=== PATIENT | female | born 1945 | race Caucasian/White ===

== ENCOUNTER 2017-06-12 10:38 | Outpatient (CLI) | payer MEDICARE, MEDICAID ==
[~2017-06-12 10:38] MED LIST: ACET650T10 PO; ALBUT2 CONTNEB; ALEN70TA3 PO; AZEL137S7 BNOSTRILS; BENZ1LOZ58 MM; BUDE0.5A4 IH; CARI350T PO; CLON0.1T PO; CLOP75TA2 PO; CODE118S2 PO; DEXT1DRO3 OP; DIPH25TA25 PO; DOCU100T2 PO; FAMO20TA80 PO; FLUO-120 PO; FOLI0.8T23 PO; GUAI5SYR PO; HYDR-548 PO; IPRA0.2S9 IH; LACT1CAP39 PO; LORA1TAB82 PO; MAGN2400 PO; METO25TA20 PO; MONT10TA22 PO; MYLANTA PO; ONDA4SOL2 PO; PANT40TA2 PO; POLY17PO4 PO; PRED20TA PO; SUCR1ORA2 PO; THYR120T2 PO; TRAM50TA2 PO
== END 2017-06-12 23:59 | disposition home or self-care (01) ==
LOC: CT 10:38
PROVIDERS: ATTEND Internal Medicine
DX: K80.20 Calculus of gallbladder without cholecystitis without obstruction (principal); K42.9 Umbilical hernia without obstruction or gangrene; K86.89 Other specified diseases of pancreas; N28.9 Disorder of kidney and ureter, unspecified; M47.895 Other spondylosis, thoracolumbar region; M77.8 Other enthesopathies, not elsewhere classified; M47.892 Other spondylosis, cervical region; M43.12 Spondylolisthesis, cervical region; M48.02 Spinal stenosis, cervical region; I70.0 Atherosclerosis of aorta; I65.23 Occlusion and stenosis of bilateral carotid arteries; I73.9 Peripheral vascular disease, unspecified; J96.10 Chronic respiratory failure, unspecified whether with hypoxia or hypercapnia; J44.9 Chronic obstructive pulmonary disease, unspecified; J98.11 Atelectasis; I11.0 Hypertensive heart disease with heart failure; I50.9 Heart failure, unspecified; I48.0 Paroxysmal atrial fibrillation; E03.9 Hypothyroidism, unspecified; E78.5 Hyperlipidemia, unspecified; F32.9 Major depressive disorder, single episode, unspecified; F41.9 Anxiety disorder, unspecified; M81.0 Age-related osteoporosis without current pathological fracture; Z88.8 Allergy status to other drugs, medicaments and biological substances; Z90.710 Acquired absence of both cervix and uterus
CPT/HCPCS: 70490-TC; 72128-TC

== ENCOUNTER 2017-07-13 11:42 | Outpatient (CLI) | payer MEDICARE, MEDICAID ==
[2017-07-13] MEDS ORDERED: GADOVERSETAMIDE 2.5 MMOL/5 ML VIAL IJ ONE (11:43)
[2017-07-13 12:56] LABS: ALANINE AMINOTRANSFERASE 25 U/L (12-78); ALBUMIN 3.6 g/dL (3.4-5.0); ALKALINE PHOSPHATASE 73 U/L (46-116); ASPARTATE AMINOTRANSFERASE 20 U/L (15-37); BILIRUBIN,TOTAL 0.3 mg/dL (0.2-1.0); CALCIUM, SERUM 9.7 mg/dL (8.5-10.1); CARBON DIOXIDE 28 mmol/L (21-32); CHLORIDE 110 mmol/L (98-107); CREATININE 1.3 mg/dL (0.6-1.3); GLUCOSE 89 mg/dL (74-106); POTASSIUM 4.4 mmol/L (3.5-5.1); SODIUM SERUM 145 mmol/L (136-145); TOTAL PROTEIN, SERUM 7.4 g/dL (6.4-8.2); UREA NITROGEN, BLOOD 36 mg/dL (7-18)
== END 2017-07-13 23:59 | disposition home or self-care (01) ==
LOC: MRI 11:42
PROVIDERS: ATTEND Internal Medicine
DX: K86.2 Cyst of pancreas (principal); N28.9 Disorder of kidney and ureter, unspecified; K80.20 Calculus of gallbladder without cholecystitis without obstruction
CPT/HCPCS: 36415; 74183; 80053; A9579